=== PATIENT | female | born 1980 | race Caucasian/White ===

== ENCOUNTER 2016-12-13 10:11 | Inpatient (IN) | payer MEDICAID ==
[~2016-12-13] VITALS: Ht 170.2 cm; Wt 81.6 kg
[2016-12-13] MEDS ORDERED: MORPHINE SULFATE 4 MG/ML CPJ (NOT FOR IM USE) IV STA (10:33)
[2016-12-13] MEDS ORDERED: ACETAMINOPHEN 325MG TABLET PO STA (10:33)
[2016-12-13] MEDS ORDERED: ONDANSETRON HCL 4MG/2ML VIAL IV STA (10:33)
[2016-12-13] MEDS ORDERED: SODIUM CHLORIDE 0.9% 1000ML BAG (SEPSIS BOLUS) IV ONE (10:45)
[2016-12-13] MEDS ORDERED: PIPERACILLIN/TAZ 3.375G PREMIX 50 ML IV ONE (10:45)
[2016-12-13 10:54] LABS: BASOPHILS % 0.2 % (0.0-2.0); EOSINOPHILS % 0.1 % (0.0-5.0); HEMATOCRIT. 42.4 % (36.0-48.0); HEMOGLOBIN. 14.3 g/dL (12.0-16.0); LYMPHOCYTES % 9.7 % (20.0-50.0); MEAN CORPUSCULAR HEMOGLOBIN 30.2 pg (28.0-32.0); MEAN CORPUSCULAR VOLUME 89.4 fL (81.0-99.0); MEAN PLATELET VOLUME 7.9 fl (7.4-10.4); MONOCYTES % 6.4 % (2.0-8.0); NEUTROPHILS % 83.6 % (40.0-76.0); PLATELET 441 x1000/uL (130-400); RED BLOOD CELL COUNT 4.74 mill/uL (4.2-5.4); RED CELL DISTRIBUTION WIDTH 13.2 % (11.6-14.6)
[2016-12-13 11:01] LABS: PROTHROMBIN TIME 10.3 sec (9.4-11.6)
[2016-12-13 11:07] LABS: CARBON DIOXIDE 24 mEq/L (21-32); CHLORIDE 99 mEq/L (98-107)
[2016-12-13 11:11] LABS: TROPONIN I < 0.02 ng/mL (0.00-0.04)
[2016-12-13 11:45] LABS: HCG SCREEN NEGATIVE
[2016-12-13 12:16] LABS: AMYLASE 34 IU/L (25-115)
[2016-12-13] MEDS ORDERED: DEXTROSE 50% WATER 50ML SYRINGE IV PRN (13:15)
[2016-12-13] MEDS ORDERED: IPRATROPIUM/ALBUTEROL 0.5-3(2.5)MG/3ML NEB INH PRN (13:15)
[2016-12-13] MEDS ORDERED: DIPHENHYDRAMINE 50MG/ML VIAL IV PRN (13:15)
[2016-12-13] MEDS: INSULIN LISPRO 100 UNITS/ML SUBCUT SCH ×3 (13:20→20:51)
[2016-12-13 14:00] VITALS: BP_SYST 130; BP_SYST 156; BP_DIAS 58; BP_DIAS 96
[2016-12-13] MEDS: ACETAMINOPHEN 325MG TABLET PO PRN (17:46)
[2016-12-13] MEDS: BLOOD SUGAR DIAGNOSTIC STRIP TEST SCH ×2 (18:14→20:45)
[2016-12-13] MEDS: PIPERACILLIN/TAZ 3.375G PREMIX 50 ML IV SCH (18:40)
[2016-12-13] MEDS: SODIUM CHLORIDE 0.9% 1,000 ML IV SCH (18:41)
[2016-12-13 20:00] VITALS: BP 160/93
[2016-12-13] MEDS ORDERED: PNEUMOCOCCAL 23-VAL P-SAC VAC 0.5 ML IM ONE (20:00)
[2016-12-13] MEDS: CLONIDINE 0.1MG TABLET PO PRN (20:42)
[2016-12-14] VITALS: BP 162/88
[2016-12-14] MEDS: ACETAMINOPHEN 325MG TABLET PO PRN ×2 (00:17→10:52)
[2016-12-14] MEDS: PIPERACILLIN/TAZ 3.375G PREMIX 50 ML IV SCH ×3 (00:17→16:59)
[2016-12-14 04:00] VITALS: BP 135/84
[2016-12-14 05:56] LABS: CARBON DIOXIDE 25 mEq/L (21-32); CHLORIDE 101 mEq/L (98-107); HDL CHOLESTEROL 54 mg/dL (40-59)
[2016-12-14 06:00] LABS: BASOPHILS % 0.8 % (0.0-2.0); HEMOGLOBIN. 12.1 g/dL (12.0-16.0); MEAN CORPUSCULAR HEMOGLOBIN 29.9 pg (28.0-32.0); MEAN CORPUSCULAR VOLUME 91.1 fL (81.0-99.0); MEAN PLATELET VOLUME 8.1 fl (7.4-10.4); MONOCYTES % 7.7 % (2.0-8.0); NEUTROPHILS % 77.5 % (40.0-76.0); PLATELET 325 x1000/uL (130-400); RED BLOOD CELL COUNT 4.06 mill/uL (4.2-5.4)
[2016-12-14 06:01] LABS: LDL CHOLESTEROL 78 mg/dL (5-100)
[2016-12-14] MEDS: SODIUM CHLORIDE 0.9% 1,000 ML IV SCH ×3 (06:46→21:42)
[2016-12-14] MEDS: BLOOD SUGAR DIAGNOSTIC STRIP TEST SCH ×4 (06:49→21:38)
[2016-12-14] MEDS: HYDROCODONE/ACETAMINOPHEN 5/325MG TABLET PO PRN ×2 (06:53→21:34)
[2016-12-14 08:00] VITALS: BP 157/98
[2016-12-14] MEDS: INSULIN LISPRO 100 UNITS/ML SUBCUT SCH ×4 (08:45→21:00)
[2016-12-14] MEDS: ONDANSETRON HCL 4MG/2ML VIAL IV PRN ×2 (11:50→17:11)
[2016-12-14 12:00] VITALS: BP 137/87
[2016-12-14] MEDS: MORPHINE SULFATE 2 MG/ML CPJ (NOT FOR IM USE) IV PRN (14:27)
[2016-12-14 16:00] VITALS: BP 159/94
[2016-12-14] MEDS: METFORMIN HCL 500MG TABLET PO SCH (17:11)
[2016-12-14 20:00] VITALS: BP 160/108
[2016-12-15] MEDS: PIPERACILLIN/TAZ 3.375G PREMIX 50 ML IV SCH ×3 (01:55→17:12)
[2016-12-15 02:02] VITALS: BP 156/93
[2016-12-15 04:00] VITALS: BP 152/97
[2016-12-15 06:29] LABS: BASOPHILS % 1.1 % (0.0-2.0); EOSINOPHILS % 0.1 % (0.0-5.0); HEMATOCRIT. 38.8 % (36.0-48.0); LYMPHOCYTES % 13.5 % (20.0-50.0); MEAN CORPUSCULAR VOLUME 89.7 fL (81.0-99.0); MEAN PLATELET VOLUME 8.2 fl (7.4-10.4); MONOCYTES % 7.7 % (2.0-8.0); NEUTROPHILS % 77.6 % (40.0-76.0); PLATELET 368 x1000/uL (130-400); RED BLOOD CELL COUNT 4.33 mill/uL (4.2-5.4); RED CELL DISTRIBUTION WIDTH 13.1 % (11.6-14.6)
[2016-12-15] MEDS: METFORMIN HCL 500MG TABLET PO SCH ×2 (06:50→17:12)
[2016-12-15] MEDS: BLOOD SUGAR DIAGNOSTIC STRIP TEST SCH ×3 (06:50→20:55)
[2016-12-15] MEDS: INSULIN LISPRO 100 UNITS/ML SUBCUT SCH ×3 (06:50→20:59)
[2016-12-15] MEDS: SODIUM CHLORIDE 0.9% 1,000 ML IV SCH ×2 (06:51→10:36)
[2016-12-15 07:03] LABS: CARBON DIOXIDE 23 mEq/L (21-32); CHLORIDE 101 mEq/L (98-107)
[2016-12-15] MEDS ORDERED: POTASSIUM CHLORIDE 20MEQ TABLET SR PO NR (07:35)
[2016-12-15 07:52] VITALS: BP 149/95
[2016-12-15] MEDS: MORPHINE SULFATE 2 MG/ML CPJ (NOT FOR IM USE) IV PRN ×2 (10:46→13:38)
[2016-12-15 12:00] VITALS: BP 154/95
[2016-12-15] MEDS ORDERED: LIDOCAINE HCL 1% 20ML VIAL (Pyxis) INJ ONE ×2 (13:46→14:48)
[2016-12-15] MEDS ORDERED: BUPIVACAINE HCL 0.5% (5MG/ML) 50ML ONE (13:46)
[2016-12-15] MEDS ORDERED: SKIN ADHESIVE 0.7 GM EA TOP ONE ×2 (14:45→14:58)
[2016-12-15] MEDS ORDERED: MIDAZOLAM HCL 2 MG/2 ML VIAL ONE (14:46)
[2016-12-15] MEDS ORDERED: FENTANYL CITRATE/PF 50MCG/ML 2ML VIAL ONE ×2 (14:47→15:31)
[2016-12-15] MEDS ORDERED: PROPOFOL 200MG/20ML VIAL IV ONE (14:48)
[2016-12-15] MEDS ORDERED: ROCURONIUM BROMIDE 10MG/ML VIAL 5ML IV ONE ×2 (14:48→15:35)
[2016-12-15] MEDS ORDERED: SUCCINYLCHOLINE CHLORIDE 200MG/10ML VIAL IV ONE (14:48)
[2016-12-15] MEDS ORDERED: METOCLOPRAMIDE HCL 10MG/2ML VIAL ONE (15:35)
[2016-12-15] MEDS ORDERED: ONDANSETRON HCL 4MG/2ML VIAL ONE (15:35)
[2016-12-15] MEDS ORDERED: SODIUM CHLORIDE 0.9% 1,000 ML IV SCH (15:59)
[2016-12-15] MEDS ORDERED: HYDROMORPHONE HCL/PF 2MG/ML CPJ IV PRN (16:00)
[2016-12-15] MEDS ORDERED: ONDANSETRON HCL 4MG/2ML VIAL IV PRN (16:00)
[2016-12-15] MEDS ORDERED: GLYCOPYRROLATE 0.2 MG/ML 2ML VIAL ONE (16:56)
[2016-12-15] MEDS ORDERED: NEOSTIGMINE METHYLSULFATE 1MG/ML 10 ML VIAL ONE (16:56)
[2016-12-15] MEDS ORDERED: LABETALOL 5MG/ML SYR 20 MG/4 ML SYRINGE IV PRN (17:45)
[2016-12-15 20:09] VITALS: BP 151/99
[2016-12-15] MEDS: ACETAMINOPHEN 325MG TABLET PO PRN (23:42)
[2016-12-16] VITALS: BP 150/86
[2016-12-16] MEDS: SODIUM CHLORIDE 0.9% 1,000 ML IV SCH ×4 (01:09→19:27)
[2016-12-16] MEDS: PIPERACILLIN/TAZ 3.375G PREMIX 50 ML IV SCH ×3 (01:09→17:20)
[2016-12-16 04:00] VITALS: BP 143/86
[2016-12-16 05:21] LABS: BASOPHILS % 0.3 % (0.0-2.0); EOSINOPHILS % 0.1 % (0.0-5.0); HEMOGLOBIN. 11.3 g/dL (12.0-16.0); LYMPHOCYTES % 16.4 % (20.0-50.0); MEAN CORPUSCULAR HEMOGLOBIN 30.1 pg (28.0-32.0); MEAN CORPUSCULAR VOLUME 90.9 fL (81.0-99.0); MEAN PLATELET VOLUME 7.9 fl (7.4-10.4); MONOCYTES % 8.8 % (2.0-8.0); NEUTROPHILS % 74.4 % (40.0-76.0); PLATELET 366 x1000/uL (130-400); RED BLOOD CELL COUNT 3.76 mill/uL (4.2-5.4)
[2016-12-16] MEDS: MORPHINE SULFATE 2 MG/ML CPJ (NOT FOR IM USE) IV PRN ×3 (05:26→13:06)
[2016-12-16 06:01] LABS: CHLORIDE 103 mEq/L (98-107)
[2016-12-16 06:08] LABS: CARBON DIOXIDE 24 mEq/L (21-32)
[2016-12-16 06:29] LABS: HEMATOCRIT. 35.2 % (36.0-48.0)
[2016-12-16 08:08] VITALS: BP 159/106
[2016-12-16] MEDS: METFORMIN HCL 500MG TABLET PO SCH ×2 (08:15→17:20)
[2016-12-16] MEDS: BLOOD SUGAR DIAGNOSTIC STRIP TEST SCH ×4 (08:15→20:27)
[2016-12-16] MEDS: INSULIN LISPRO 100 UNITS/ML SUBCUT SCH ×4 (08:18→20:30)
[2016-12-16 12:00] VITALS: BP 149/106
[2016-12-16] MEDS: HYDROCODONE/ACETAMINOPHEN 5/325MG TABLET PO PRN ×2 (12:11→16:27)
[2016-12-16] MEDS ORDERED: POTASSIUM CHLORIDE 20MEQ TABLET SR PO NR (12:45)
[2016-12-16] MEDS: AMLODIPINE 5MG TABLET PO SCH ×2 (13:06→20:28)
[2016-12-16] MEDS: LOSARTAN POTASSIUM 25 MG TABLET PO SCH (13:06)
[2016-12-16] MEDS ORDERED: BISACODYL 5MG TABLET PO PRN (14:45)
[2016-12-16 16:31] VITALS: BP 160/116
[2016-12-16] MEDS: HYDROMORPHONE HCL/PF 2MG/ML CPJ IV PRN ×3 (17:20→21:31)
[2016-12-16 20:11] VITALS: BP 150/95
[2016-12-17] VITALS (7 sets, daily range): BP systolic 127–164; BP diastolic 82–111
[2016-12-17] MEDS: PIPERACILLIN/TAZ 3.375G PREMIX 50 ML IV SCH ×3 (01:29→17:51)
[2016-12-17] MEDS: HYDROMORPHONE HCL/PF 2MG/ML CPJ IV PRN ×6 (02:48→21:03)
[2016-12-17] MEDS: SODIUM CHLORIDE 0.9% 1,000 ML IV SCH ×3 (02:49→22:37)
[2016-12-17 06:22] LABS: BASOPHILS % 0.4 % (0.0-2.0); EOSINOPHILS % 0.2 % (0.0-5.0); HEMATOCRIT. 34.7 % (36.0-48.0); HEMOGLOBIN. 11.4 g/dL (12.0-16.0); LYMPHOCYTES % 14.2 % (20.0-50.0); MEAN CORPUSCULAR VOLUME 91.2 fL (81.0-99.0); MEAN PLATELET VOLUME 7.9 fl (7.4-10.4); MONOCYTES % 10.1 % (2.0-8.0); NEUTROPHILS % 75.1 % (40.0-76.0); PLATELET 376 x1000/uL (130-400); RED BLOOD CELL COUNT 3.81 mill/uL (4.2-5.4); RED CELL DISTRIBUTION WIDTH 13.1 % (11.6-14.6)
[2016-12-17 06:48] LABS: CARBON DIOXIDE 25 mEq/L (21-32); CHLORIDE 99 mEq/L (98-107); TROPONIN I < 0.02 ng/mL (0.00-0.04)
[2016-12-17] MEDS: BLOOD SUGAR DIAGNOSTIC STRIP TEST SCH ×4 (07:32→21:03)
[2016-12-17] MEDS: ENOXAPARIN 40MG/0.4ML SYR SUBCUT SCH (08:03)
[2016-12-17] MEDS: INSULIN LISPRO 100 UNITS/ML SUBCUT SCH ×4 (08:03→21:04)
[2016-12-17] MEDS: LOSARTAN POTASSIUM 25 MG TABLET PO SCH ×2 (08:07→22:36)
[2016-12-17] MEDS: METFORMIN HCL 500MG TABLET PO SCH ×2 (08:07→17:51)
[2016-12-17] MEDS: AMLODIPINE 5MG TABLET PO SCH ×2 (08:07→22:36)
[2016-12-17] MEDS: ACETAMINOPHEN 325MG TABLET PO PRN ×2 (08:18→21:06)
[2016-12-17] MEDS ORDERED: POTASSIUM CHLORIDE 20MEQ TABLET SR PO NR (10:15)
[2016-12-17] MEDS: CLONIDINE 0.1MG TABLET PO PRN (16:43)
[2016-12-17] MEDS: ONDANSETRON HCL 4MG/2ML VIAL IV PRN (17:51)
[2016-12-18] VITALS: BP_SYST 120; BP_SYST 138; BP_DIAS 68; BP_DIAS 87
[2016-12-18] MEDS: PIPERACILLIN/TAZ 3.375G PREMIX 50 ML IV SCH ×3 (01:13→18:32)
[2016-12-18] MEDS: HYDROMORPHONE HCL/PF 2MG/ML CPJ IV PRN ×5 (02:04→21:37)
[2016-12-18 04:00] VITALS: BP 149/100
[2016-12-18 05:46] LABS: BASOPHILS % 0.3 % (0.0-2.0); HEMATOCRIT. 33.4 % (36.0-48.0); HEMOGLOBIN. 11.1 g/dL (12.0-16.0); LYMPHOCYTES % 20.1 % (20.0-50.0); MEAN CORPUSCULAR HEMOGLOBIN 30.1 pg (28.0-32.0); MEAN CORPUSCULAR VOLUME 90.4 fL (81.0-99.0); MEAN PLATELET VOLUME 7.7 fl (7.4-10.4); NEUTROPHILS % 70.6 % (40.0-76.0); PLATELET 384 x1000/uL (130-400); RED CELL DISTRIBUTION WIDTH 12.9 % (11.6-14.6)
[2016-12-18] MEDS: BLOOD SUGAR DIAGNOSTIC STRIP TEST SCH ×4 (06:45→20:52)
[2016-12-18] MEDS: SODIUM CHLORIDE 0.9% 1,000 ML IV SCH ×2 (06:48→15:24)
[2016-12-18 07:31] LABS: CARBON DIOXIDE 28 mEq/L (21-32)
[2016-12-18 07:32] LABS: CHLORIDE 101 mEq/L (98-107)
[2016-12-18 08:00] VITALS: BP 163/97
[2016-12-18] MEDS: AMLODIPINE 5MG TABLET PO SCH ×2 (09:09→20:53)
[2016-12-18] MEDS: LOSARTAN POTASSIUM 25 MG TABLET PO SCH ×2 (09:09→20:53)
[2016-12-18] MEDS: METFORMIN HCL 500MG TABLET PO SCH ×2 (09:10→18:32)
[2016-12-18] MEDS: ENOXAPARIN 40MG/0.4ML SYR SUBCUT SCH (09:10)
[2016-12-18] MEDS: CLONIDINE 0.1MG TABLET PO PRN (09:10)
[2016-12-18] MEDS: INSULIN LISPRO 100 UNITS/ML SUBCUT SCH ×4 (09:12→20:53)
[2016-12-18 12:00] VITALS: BP 134/88
[2016-12-18 16:00] VITALS: BP 152/96
[2016-12-18 20:00] VITALS: BP 142/103
[2016-12-19] VITALS: BP 137/83
[2016-12-19] MEDS: PIPERACILLIN/TAZ 3.375G PREMIX 50 ML IV SCH ×2 (01:04→09:05)
[2016-12-19] MEDS: SODIUM CHLORIDE 0.9% 1,000 ML IV SCH ×2 (01:05→09:04)
[2016-12-19 04:00] VITALS: BP 142/91
[2016-12-19] MEDS: HYDROMORPHONE HCL/PF 2MG/ML CPJ IV PRN ×2 (04:03→09:03)
[2016-12-19 06:50] LABS: BASOPHILS % 0.5 % (0.0-2.0); EOSINOPHILS % 1.1 % (0.0-5.0); HEMATOCRIT. 34.2 % (36.0-48.0); HEMOGLOBIN. 11.4 g/dL (12.0-16.0); MEAN CORPUSCULAR VOLUME 90.3 fL (81.0-99.0); MEAN PLATELET VOLUME 7.6 fl (7.4-10.4); MONOCYTES % 7.1 % (2.0-8.0); NEUTROPHILS % 73.3 % (40.0-76.0); PLATELET 437 x1000/uL (130-400); RED BLOOD CELL COUNT 3.79 mill/uL (4.2-5.4); RED CELL DISTRIBUTION WIDTH 12.8 % (11.6-14.6)
[2016-12-19] MEDS: BLOOD SUGAR DIAGNOSTIC STRIP TEST SCH ×2 (07:40→12:43)
[2016-12-19 07:41] LABS: CARBON DIOXIDE 28 mEq/L (21-32); CHLORIDE 100 mEq/L (98-107)
[2016-12-19 08:18] VITALS: BP 147/92
[2016-12-19] MEDS: METFORMIN HCL 500MG TABLET PO SCH (09:03)
[2016-12-19] MEDS: LOSARTAN POTASSIUM 25 MG TABLET PO SCH (09:04)
[2016-12-19] MEDS: AMLODIPINE 5MG TABLET PO SCH (09:04)
[2016-12-19] MEDS: ENOXAPARIN 40MG/0.4ML SYR SUBCUT SCH (09:05)
[2016-12-19] MEDS: INSULIN LISPRO 100 UNITS/ML SUBCUT SCH ×2 (09:06→12:43)
[2016-12-19] MEDS ORDERED: POTASSIUM CHLORIDE 20MEQ TABLET SR PO NR (11:45)
[2016-12-19 12:00] VITALS: BP 138/93
[2016-12-19 13:29] VITALS: BP 138/93
== END 2016-12-19 13:55 | disposition home or self-care (01) | DRG 710 ==
LOC: ER 10:20 → EDBEDREQSVC 10:40 → EDBEDREQ 10:40 → EDBEDREQSVC 10:43 → 7WST 11:46 → EDBEDREQ 11:48 → ENRESERV 12:34
PROVIDERS: ADMIT Internal Medicine; ATTEND Internal Medicine
PROC: 0FT44ZZ Resection of Gallbladder, Percutaneous Endoscopic Approach (ICD-10-PCS; principal; 2016-12-15 14:30)
DX: A41.9 Sepsis, unspecified organism (principal); I11.9 Hypertensive heart disease without heart failure; K76.0 Fatty (change of) liver, not elsewhere classified; K80.01 Calculus of gallbladder with acute cholecystitis with obstruction; E11.65 Type 2 diabetes mellitus with hyperglycemia; E87.6 Hypokalemia; Z68.34 Body mass index [BMI] 34.0-34.9, adult; E66.9 Obesity, unspecified; Z86.32 Personal history of gestational diabetes
CPT/HCPCS: 36415; 74022; 76705; 78227; 80048; 80053; 80061; 82150; 82962; 83036; 83605; 83690; 83735; 84484; 84703; 85025; 85610; 87040; 88304; 90732; 93005; 93306; 96374; 96375; 99291; A9537; C1893; J0330; J1170; J1650; J1815; J2250; J2270; J2405; J2543; J2704; J2710; J2765; J3010; J3490; J7030; J7040; J7120

== ENCOUNTER 2016-12-23 10:37 | Inpatient (IN) | payer MEDICAID ==
[~2016-12-23] VITALS: Ht 170.2 cm; Wt 116.6 kg
[2016-12-23] MEDS ORDERED: MORPHINE SULFATE 4 MG/ML CPJ (NOT FOR IM USE) IV STA (11:01)
[2016-12-23 11:23] LABS: BASOPHILS % 1.3 % (0.0-2.0); EOSINOPHILS % 1.4 % (0.0-5.0); HEMOGLOBIN. 12.3 g/dL (12.0-16.0); LYMPHOCYTES % 21.8 % (20.0-50.0); MEAN CORPUSCULAR HEMOGLOBIN 29.9 pg (28.0-32.0); MEAN CORPUSCULAR VOLUME 89.6 fL (81.0-99.0); MEAN PLATELET VOLUME 7.1 fl (7.4-10.4); MONOCYTES % 6.7 % (2.0-8.0); NEUTROPHILS % 68.8 % (40.0-76.0); PLATELET 574 x1000/uL (130-400); RED BLOOD CELL COUNT 4.13 mill/uL (4.2-5.4); RED CELL DISTRIBUTION WIDTH 12.9 % (11.6-14.6)
[2016-12-23 11:27] LABS: CHLORIDE 102 mEq/L (98-107)
[2016-12-23 11:35] LABS: CARBON DIOXIDE 26 mEq/L (21-32)
[2016-12-23] MEDS ORDERED: IOHEXOL-300 100 ML BOTTLE ONE (11:52)
[2016-12-23] MEDS ORDERED: SODIUM CHLORIDE 0.9% 10ML VIAL ONE (11:52)
[2016-12-23 12:07] LABS: HCG SCREEN NEGATIVE
[2016-12-23 12:09] LABS: GLUCOSE URINE NEGATIVE (NEGATIVE); KETONES URINE TRACE (NEGATIVE); LEUKOCYTE ESTERASE URINE 1+ (NEGATIVE); NITRITE URINE NEGATIVE (NEGATIVE); OCCULT BLOOD URINE 3+ (NEGATIVE); PH URINE 6.5 (4.5-8.0); PROTEIN URINE TRACE (NEGATIVE); SPECIFIC GRAVITY URINE 1.017 (1.005-1.030); UROBILINOGEN URINE 0.2 E.U./dL (0.2-1.0)
[2016-12-23 12:10] LABS: CLARITY URINE HAZY (CLEAR); COLOR URINE YELLOW (YELLOW)
[2016-12-23] MEDS ORDERED: CLINDAMYCIN 600 MG in DEXTROSE 5% WATER 50 ML IV ONE (14:45)
[2016-12-23] MEDS ORDERED: MORPHINE SULFATE 4 MG/ML CPJ (NOT FOR IM USE) IV ONE (18:30)
[2016-12-23] MEDS ORDERED: CLONIDINE 0.1MG TABLET PO PRN (19:00)
[2016-12-23] MEDS ORDERED: ONDANSETRON HCL 4MG/2ML VIAL IV PRN (19:00)
[2016-12-23] MEDS ORDERED: IPRATROPIUM/ALBUTEROL 0.5-3(2.5)MG/3ML NEB INH PRN (19:00)
[2016-12-23] MEDS ORDERED: MAGNESIUM/ALUMINUM HYDROXIDE/SIMETHICONE 30ML UDC PO PRN (19:00)
[2016-12-23] MEDS ORDERED: ACETAMINOPHEN 325MG TABLET PO PRN (19:00)
[2016-12-23 20:34] LABS: CARBON DIOXIDE 28 mEq/L (21-32); CHLORIDE 103 mEq/L (98-107)
[2016-12-23 20:40] VITALS: BP 140/86
[2016-12-23] MEDS: CEFAZOLIN 1000MG PREMIX 50 ML IV SCH (22:43)
[2016-12-23 23:00] VITALS: BP 140/86
[2016-12-23] MEDS ORDERED: DEXTROSE 50% WATER 50ML SYRINGE IV PRN (23:00)
[2016-12-23] MEDS ORDERED: LIDOCAINE HCL 1% 20ML VIAL (Pyxis) INJ INFIL NR (23:00)
[2016-12-23] MEDS: BLOOD SUGAR DIAGNOSTIC STRIP TEST SCH (23:02)
[2016-12-23] MEDS: HYDROCODONE/ACETAMINOPHEN 5/325MG TABLET PO PRN (23:10)
[2016-12-23] MEDS: INSULIN LISPRO 100 UNITS/ML SUBCUT SCH (23:15)
[2016-12-24] VITALS: BP 132/79
[2016-12-24] MEDS ORDERED: HYDR-4001 PO (00:48)
[2016-12-24] MEDS ORDERED: AMOX1TAB16 PO (00:50)
[2016-12-24 04:00] VITALS: BP 129/79
[2016-12-24 05:48] LABS: BASOPHILS % 0.7 % (0.0-2.0); EOSINOPHILS % 2.1 % (0.0-5.0); HEMATOCRIT. 35.9 % (36.0-48.0); HEMOGLOBIN. 11.9 g/dL (12.0-16.0); LYMPHOCYTES % 35.5 % (20.0-50.0); MEAN CORPUSCULAR HEMOGLOBIN 30.1 pg (28.0-32.0); MEAN CORPUSCULAR VOLUME 90.8 fL (81.0-99.0); MEAN PLATELET VOLUME 7.4 fl (7.4-10.4); MONOCYTES % 7.2 % (2.0-8.0); NEUTROPHILS % 54.5 % (40.0-76.0); PLATELET 557 x1000/uL (130-400); RED BLOOD CELL COUNT 3.95 mill/uL (4.2-5.4); RED CELL DISTRIBUTION WIDTH 12.9 % (11.6-14.6)
[2016-12-24] MEDS: CEFAZOLIN 1000MG PREMIX 50 ML IV SCH ×2 (06:01→14:09)
[2016-12-24] MEDS: HYDROCODONE/ACETAMINOPHEN 5/325MG TABLET PO PRN ×3 (06:02→14:10)
[2016-12-24] MEDS: BLOOD SUGAR DIAGNOSTIC STRIP TEST SCH ×4 (06:03→21:33)
[2016-12-24] MEDS: INSULIN LISPRO 100 UNITS/ML SUBCUT SCH ×4 (06:42→21:00)
[2016-12-24] MEDS: ENOXAPARIN 30MG/0.3ML SYR SUBCUT SCH ×2 (08:34→21:31)
[2016-12-24 10:00] VITALS: BP 138/85
[2016-12-24 14:00] VITALS: BP 140/96
[2016-12-24] MEDS ORDERED: HYDROCODONE/APAP 7.5/325MG 1 TAB TABLET PO PRN (15:15)
[2016-12-24] MEDS: MORPHINE SULFATE 4 MG/ML CPJ (NOT FOR IM USE) IV PRN ×2 (17:59→22:13)
[2016-12-25] MEDS: CEFAZOLIN 1000MG PREMIX 50 ML IV SCH ×2 (00:14→05:54)
[2016-12-25] MEDS: MORPHINE SULFATE 4 MG/ML CPJ (NOT FOR IM USE) IV PRN ×2 (05:54→10:45)
[2016-12-25] MEDS: BLOOD SUGAR DIAGNOSTIC STRIP TEST SCH ×2 (06:03→12:36)
[2016-12-25 07:02] LABS: BASOPHILS % 0.5 % (0.0-2.0); EOSINOPHILS % 2.5 % (0.0-5.0); HEMATOCRIT. 36.5 % (36.0-48.0); HEMOGLOBIN. 12.3 g/dL (12.0-16.0); LYMPHOCYTES % 30.8 % (20.0-50.0); MEAN CORPUSCULAR HEMOGLOBIN 30.5 pg (28.0-32.0); MEAN CORPUSCULAR VOLUME 90.4 fL (81.0-99.0); MEAN PLATELET VOLUME 7.5 fl (7.4-10.4); MONOCYTES % 7.6 % (2.0-8.0); NEUTROPHILS % 58.6 % (40.0-76.0); PLATELET 586 x1000/uL (130-400); RED BLOOD CELL COUNT 4.04 mill/uL (4.2-5.4)
[2016-12-25] MEDS: INSULIN LISPRO 100 UNITS/ML SUBCUT SCH ×2 (07:20→12:36)
[2016-12-25 07:43] LABS: CARBON DIOXIDE 29 mEq/L (21-32); CHLORIDE 100 mEq/L (98-107)
[2016-12-25 08:00] VITALS: BP 136/87
[2016-12-25] MEDS: ENOXAPARIN 30MG/0.3ML SYR SUBCUT SCH (08:44)
[2016-12-25 12:52] VITALS: BP 121/84
== END 2016-12-25 13:30 | disposition home health service (06) | DRG 721 ==
LOC: ER 12:53 → 8WST 14:50 → EDBEDREQTM 14:51 → EDBEDREQ 14:51 → ENRESERV 16:14 → CANRESERV 16:14 → ENRESERV 18:41
PROVIDERS: ADMIT Internal Medicine; ATTEND Internal Medicine
DX: T81.4XXA Infection following a procedure, initial encounter (principal); E44.0 Moderate protein-calorie malnutrition; I10 Essential (primary) hypertension; E11.9 Type 2 diabetes mellitus without complications; Z90.49 Acquired absence of other specified parts of digestive tract; L03.90 Cellulitis, unspecified
CPT/HCPCS: 36415; 74177; 80048; 80053; 81001; 82962; 83690; 84703; 85025; 85610; 87040; 87070; 87077; 87186; 87205; 93970; 96365; 96375; 96376; 99285; A4216; J0690; J1650; J1815; J2270; J3490; J7040; J7060; Q9967

== ENCOUNTER 2018-11-30 11:39 | Inpatient (IN) | payer MEDICAID ==
[~2018-11-30] VITALS: Ht 170.2 cm; Wt 101.2 kg
[~2018-11-30 11:39] MED LIST: AMOX1TAB16 PO; HYDR-4001 PO
[2018-11-30] MEDS ORDERED: HYDR25TA PO (11:59)
[2018-11-30] MEDS ORDERED: SITA100T11 PO (11:59)
[2018-11-30] MEDS ORDERED: GLIP10TA10 PO (11:59)
[2018-11-30] MEDS ORDERED: METF-415 PO (12:00)
[2018-11-30] MEDS ORDERED: SODIUM CHLORIDE 0.9% 1,000 ML IV ONE (12:10)
[2018-11-30] MEDS ORDERED: KETOROLAC 30MG/ML VIAL IV STA (12:10)
[2018-11-30 12:47] LABS: BASOPHILS % 1.1 % (0.0-2.0); EOSINOPHILS % 0.6 % (0.0-5.0); HEMATOCRIT. 39.7 % (36.0-48.0); HEMOGLOBIN. 13.5 g/dL (12.0-16.0); LYMPHOCYTES % 16.5 % (20.0-50.0); MEAN CORPUSCULAR HEMOGLOBIN 31.1 pg (28.0-32.0); MEAN PLATELET VOLUME 8.7 fl (7.4-10.4); MONOCYTES % 4.7 % (2.0-8.0); NEUTROPHILS % 77.1 % (40.0-76.0); PLATELET 412 x1000/uL (130-400); RED BLOOD CELL COUNT 4.36 mill/uL (4.2-5.4); RED CELL DISTRIBUTION WIDTH 13.6 % (11.6-14.6)
[2018-11-30 12:54] LABS: CHLORIDE 97 mEq/L (98-107)
[2018-11-30 12:55] LABS: INR 0.9; PROTHROMBIN TIME 9.8 sec (9.6-11.0)
[2018-11-30] MEDS ORDERED: ONDANSETRON HCL 4MG/2ML INJ IV ONE (13:00)
[2018-11-30] MEDS ORDERED: MORPHINE SULFATE 4 MG/ML CPJ (NOT FOR IM USE) IV ONE (13:00)
[2018-11-30 13:07] LABS: HCG SCREEN NEGATIVE
[2018-11-30 13:50] LABS: CLARITY URINE CLEAR (CLEAR); COLOR URINE YELLOW (YELLOW); KETONES URINE 2+ (NEGATIVE); LEUKOCYTE ESTERASE URINE NEGATIVE (NEGATIVE); NITRITE URINE NEGATIVE (NEGATIVE); OCCULT BLOOD URINE NEGATIVE (NEGATIVE); PH URINE 8.5 (4.5-8.0); PROTEIN URINE NEGATIVE (NEGATIVE); SPECIFIC GRAVITY URINE 1.042 (1.005-1.030); UROBILINOGEN URINE 0.2 E.U./dL (0.2-1.0)
[2018-11-30] MEDS ORDERED: PIPERACILLIN/TAZ 3.375G PREMIX 50 ML IV ONE (14:15)
[2018-11-30] MEDS ORDERED: IOHEXOL-300 100 ML BOTTLE ONE (15:00)
[2018-11-30] MEDS ORDERED: SKIN ADHESIVE 0.7 GM EA TOP ONE (15:01)
[2018-11-30] MEDS ORDERED: BUPIVACAINE HCL 0.5% (5MG/ML) 50ML ONE (15:02)
[2018-11-30] MEDS ORDERED: ACETAMINOPHEN 325MG TABLET PO PRN (15:30)
[2018-11-30] MEDS ORDERED: ONDANSETRON HCL 4MG/2ML INJ IV PRN (15:30)
[2018-11-30] MEDS ORDERED: HYDROCODONE/ACETAMINOPHEN 5/325MG TABLET PO PRN (15:30)
[2018-11-30] MEDS ORDERED: MORPHINE SULFATE 4 MG/ML CPJ (NOT FOR IM USE) IV PRN (15:30)
[2018-11-30] MEDS ORDERED: MORPHINE SULFATE 2 MG/ML CPJ (NOT FOR IM USE) IV PRN (15:30)
[2018-11-30] MEDS ORDERED: FENTANYL CITRATE/PF 50MCG/ML 2ML VIAL ONE (15:42)
[2018-11-30] MEDS ORDERED: PROPOFOL 200MG/20ML VIAL IV ONE (15:42)
[2018-11-30] MEDS ORDERED: ROCURONIUM BROMIDE 10MG/ML VIAL 5ML IV ONE (15:42)
[2018-11-30] MEDS ORDERED: NEOSTIGMINE METHYLSULFATE 1MG/ML 10 ML VIAL ONE (15:42)
[2018-11-30] MEDS ORDERED: MIDAZOLAM HCL 2 MG/2 ML VIAL ONE (15:42)
[2018-11-30] MEDS ORDERED: GLYCOPYRROLATE 0.2 MG/ML 2ML VIAL ONE (15:42)
[2018-11-30] MEDS ORDERED: LIDOCAINE HCL/PF 1% 10 MG/ML 5ML VIAL ONE (15:43)
[2018-11-30] MEDS ORDERED: ONDANSETRON HCL 4MG/2ML INJ ONE (16:12)
[2018-11-30] MEDS ORDERED: DEXT 5%/0.45% NACL KCL 20MEQ/L 1,000 ML IV SCH (16:30)
[2018-11-30] MEDS ORDERED: MEPERIDINE HCL/PF 25MG/ML CPJ IV PRN (16:45)
[2018-11-30] MEDS ORDERED: KETOROLAC 30MG/ML VIAL IV PRN (16:45)
[2018-11-30] MEDS ORDERED: DIPHENHYDRAMINE 50MG/ML VIAL IV PRN (16:45)
[2018-11-30] MEDS ORDERED: HYDROMORPHONE HCL/PF 2MG/ML CPJ IV PRN (16:45)
[2018-11-30] MEDS ORDERED: METOCLOPRAMIDE HCL 10MG/2ML VIAL IV PRN (16:45)
[2018-11-30] MEDS ORDERED: ALBUTEROL (0.5%) 2.5MG/0.5ML NEB HHN NR (17:00)
[2018-11-30] MEDS ORDERED: DEXTROSE 50% WATER 50ML SYRINGE IV PRN (17:00)
[2018-11-30] MEDS ORDERED: IPRATROPIUM/ALBUTEROL 0.5-3(2.5)MG/3ML NEB ONE (17:02)
[2018-11-30] MEDS ORDERED: ALBUTEROL (0.083%) 2.5MG/3ML NEB ONE (17:03)
[2018-11-30] MEDS: INSULIN LISPRO 100 UNITS/ML SUBCUT SCH ×2 (20:26→20:37)
[2018-11-30] MEDS: BLOOD SUGAR DIAGNOSTIC STRIP TEST SCH (20:27)
[2018-11-30] MEDS: SODIUM CHLORIDE 0.9% 1,000 ML IV SCH (20:28)
[2018-11-30 20:30] VITALS: BP 133/65
[2018-11-30 20:42] VITALS: BP 133/65
[2018-11-30 21:00] LABS: *AMPHETAMINES SCREEN URINE NEGATIVE (NEGATIVE); *BARBITURATES SCREEN URINE NEGATIVE (NEGATIVE)
[2018-11-30 21:01] LABS: *COCAINE SCREEN URINE NEGATIVE (NEGATIVE); CANNABINOID URINE SCREEN NEGATIVE (NEGATIVE); METHADONE URINE SCREEN NEGATIVE (NEGATIVE)
[2018-11-30 21:02] LABS: PHENCYCLIDINE URINE SCREEN NEGATIVE (NEGATIVE)
[2018-11-30 21:28] LABS: *BENZODIAZEPINES SCREEN URINE PRESUMTIVE POSITIVE (NEGATIVE); OPIATES URINE SCREEN PRESUMTIVE POSITIVE (NEGATIVE)
[2018-11-30] MEDS ORDERED: INSULIN LISPRO 100 UNITS/ML SUBCUT NR (22:30)
[2018-11-30] MEDS: SODIUM CHLORIDE 0.9% INJ 3ML FLUSH IVF SCH (23:01)
[2018-11-30] MEDS: HYDROCODONE/ACETAMINOPHEN 5/325MG TABLET PO PRN (23:39)
[2018-12-01] VITALS (7 sets, daily range): BP systolic 124–153; BP diastolic 74–95
[2018-12-01] MEDS: HYDROCODONE/ACETAMINOPHEN 5/325MG TABLET PO PRN ×4 (04:59→19:34)
[2018-12-01] MEDS: INSULIN LISPRO 100 UNITS/ML SUBCUT SCH ×6 (06:44→20:17)
[2018-12-01] MEDS: BLOOD SUGAR DIAGNOSTIC STRIP TEST SCH ×4 (06:45→20:18)
[2018-12-01] MEDS: SODIUM CHLORIDE 0.9% INJ 3ML FLUSH IVF SCH (06:45)
[2018-12-01] MEDS: SODIUM CHLORIDE 0.9% 1,000 ML IV SCH (06:46)
[2018-12-01 07:46] LABS: BASOPHILS % 0.5 % (0.0-2.0); EOSINOPHILS % 0.8 % (0.0-5.0); HEMATOCRIT. 35.4 % (36.0-48.0); HEMOGLOBIN. 12.1 g/dL (12.0-16.0); LYMPHOCYTES % 20.3 % (20.0-50.0); MEAN CORPUSCULAR HEMOGLOBIN 31.6 pg (28.0-32.0); MEAN CORPUSCULAR VOLUME 92.4 fL (81.0-99.0); MEAN PLATELET VOLUME 8.7 fl (7.4-10.4); MONOCYTES % 4.9 % (2.0-8.0); NEUTROPHILS % 73.5 % (40.0-76.0); PLATELET 327 x1000/uL (130-400); RED BLOOD CELL COUNT 3.83 mill/uL (4.2-5.4); RED CELL DISTRIBUTION WIDTH 13.4 % (11.6-14.6)
[2018-12-01 08:08] LABS: CHLORIDE 99 mEq/L (98-107)
[2018-12-01] MEDS ORDERED: INSULIN GLARGINE UD 100 UNITS/ML SYR SUBCUT NR (13:30)
[2018-12-01] MEDS ORDERED: AMLODIPINE 10MG TABLET PO NR (16:05)
[2018-12-01] MEDS ORDERED: INSULIN LISPRO 100 UNITS/ML SUBCUT NR ×2 (16:05→18:15)
[2018-12-01] MEDS ORDERED: GLIPIZIDE 5MG TABLET PO SCH (16:15)
[2018-12-01] MEDS ORDERED: GLIPIZIDE XL 2.5MG TABLET PO NR (16:15)
[2018-12-01] MEDS ORDERED: INSULIN GLARGINE UD 100 UNITS/ML SYR SUBCUT SCH ×2 (22:00)
== END 2018-12-01 21:43 | disposition home or self-care (01) | DRG 234 ==
LOC: ER 11:39 → ENRESERV 14:56 → 5WST 15:40
PROVIDERS: ADMIT Internal Medicine; ATTEND Surgery
PROC: 0DTJ4ZZ Resection of Appendix, Percutaneous Endoscopic Approach (ICD-10-PCS; principal; 2018-11-30)
DX: K35.80 Unspecified acute appendicitis (principal); E11.65 Type 2 diabetes mellitus with hyperglycemia; E87.8 Other disorders of electrolyte and fluid balance, not elsewhere classified; K76.0 Fatty (change of) liver, not elsewhere classified; E87.1 Hypo-osmolality and hyponatremia; E44.1 Mild protein-calorie malnutrition; E66.9 Obesity, unspecified; I10 Essential (primary) hypertension; K40.90 Unilateral inguinal hernia, without obstruction or gangrene, not specified as recurrent; Z79.84 Long term (current) use of oral hypoglycemic drugs; Z90.49 Acquired absence of other specified parts of digestive tract; Z71.3 Dietary counseling and surveillance; Z68.34 Body mass index [BMI] 34.0-34.9, adult; Z79.899 Other long term (current) drug therapy
CPT/HCPCS: 36415; 74177; 80048; 80305; 81003; 82962; 83036; 83605; 84703; 88304; 94640; 99285; J1815; J1885; J2250; J2270; J2405; J2543; J2704; J2710; J3010; J3490; J7030; J7611; J7620; Q9967